=== PATIENT | female | born 1995 | race Caucasian/White ===

== ENCOUNTER 2017-09-05 10:53 | Emergency (ER) | payer MEDICAID ==
[2017-09-05 10:59] VITALS: RESP 16; O2SAT 97
--- NOTE | 2017-09-05 11:30 | EDPHY ---
H & P Stated Complaint: awakened today with dizzyness/increased with turning head/ nausea HPI/ROS: CHIEF COMPLAINT: Dizziness HISTORY OF PRESENT ILLNESS: The patient is a 22 y/o female arriving with her boyfriend complaining of dizziness with head movement upon waking this morning. She had a wave of nausea upon sitting up in bed, which continued with any movement of her eyes or body. Upon lying back down and closing her eyes she felt extremely dizzy, like the room was spinning. She gets similar symptoms frequently before bed, but they usually resolve quickly. She has some baseline left-sided neck pain and occasional back pain that she attributes to heavy lifting at work. This is sometimes associated with tingling in her arms or legs upon waking in the morning; she had the same arm paresthesias this morning that have since resolved and currently has mild neck pain that is the same as baseline. No headache, change in hearing, vision changes, speech difficulty, weakness, current numbness, fever. LMP was last week. No recent chiropractic adjustments or trauma. REVIEW OF SYSTEMS: A ten point review of systems was performed and is negative with the exception of the items mentioned in the HPI. Past medical history: Neck and back pain Family history: Noncontributory Social history: Employed at a [employer]. Boyfriend at bedside. 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 Lives in [place]. General Appearance: Alert. Vital signs reviewed. Blood pressure 128/87. Eyes: Pupils equal and round, no conjunctival injection, no discharge. Anicteric. No nystagmus. ENT, Mouth: Mucous membranes are moist, no oropharyngeal erythema or edema. TMs normal bilaterally. Neck: No lymphadenopathy, supple. No carotid bruit. Range of motion not tested. Respiratory: Lungs are clear to auscultation; no wheezes, rales, or rhonchi. Cardiovascular: Regular rate and rhythm; no murmur, rub, or gallop. Gastrointestinal: Abdomen is soft and nontender, no masses or organomegaly. Skin: Warm and dry, no rashes on exposed skin, normal color. Back: Nontender to palpation over the thoracolumbar spine. No CVAT. Extremities: No lower extremity edema, no calf tenderness or swelling. Neurological: Alert and oriented. Moving all four extremities easily and equally. Cranial nerves II through XII are examined and are intact (visual acuity not tested). Strength is 5 over 5 bilaterally with testing of all major motor groups. Sensation is intact to light touch over all 4 extremities. Deep tendon reflexes are 2+ in the biceps and knees bilaterally. [id number] is performed accurately. Psychiatric: Normal affect. - Personal History LMP (Females 10-55): 1-7 Days Ago Current Tetanus/Diphtheria Vaccine: Unsure - Medical/Surgical History Hx Asthma: No Hx Chronic Respiratory Disease: No Hx Diabetes: No Hx Cardiac Disease: No Hx Renal Disease: No Hx Cirrhosis: No Hx Alcoholism: No Hx HIV/AIDS: No Hx Splenectomy or Spleen Trauma: No Other PMH: denies - Social History Smoking Status: Never smoked Constitutional: Initial Vital Signs Temperature (C) 36.7 C 09/05/17 10:57 Heart Rate 86 09/05/17 10:57 Respiratory Rate 16 09/05/17 10:57 Blood Pressure 128/87 H 09/05/17 10:57 O2 Sat (%) 97 09/05/17 10:57 O2 Delivery Mode Room Air Allergies/Adverse Reactions: Sulfa (Sulfonamide Antibiotics) Allergy (Verified 09/05/17 10:56) Home Medications: Medication Instructions Recorded Meclizine HCl [Meclizine HCl 25 mg 25 mg PO TID PRN #10 tab 09/05/17 (RX,OTC)] Ondansetron Odt [Zofran Odt 4 mg 4 mg PO Q4 PRN #10 tab 09/05/17 (RX)] Sprintec 28 Day Tablet 09/05/17 Medical Decision Making ED Course/Re-evaluation: This is a normally 22 y/o female who presents with dizziness and nausea upon waking this morning. Her neuro exam is normal. Presentation consistent with vertigo, though also considered possibility of with her morning nausea. She declines an IV at this time. Plan for 4mg ODT Zofran and 25mg PO Meclizine, urine test. I do not suspect a central origin for her vertigo. 1337: Reevaluated patient. She is feeling almost completely improved after Meclizine and was able to stand and walk with minimal assistance without exacerbating symptoms. She feels ready to go home and will be discharged with scripts for Meclizine and Zofran with standard vertigo care and follow up instructions. Return precautions discussed. Differential Diagnosis: Vertigo including but not limited to peripheral causes such as benign positional vertigo, Meniere's disease, viral labyrinthitis and central causes such as CVA, and tumor. - Data Points Medications Given: Discontinued Medications Meclizine HCl (Meclizine Hcl) 25 mg PO EDNOW ONE Stop: 09/05/17 11:53 Last Admin: 09/05/17 11:55 Dose: 25 mg Ondansetron HCl (Zofran Odt) 4 mg PO EDNOW ONE Stop: 09/05/17 11:53 Last Admin: 09/05/17 11:55 Dose: 4 mg Departure - Departure Disposition: Home, Routine, Self-Care Clinical Impression: Vertigo Condition: Good Instructions: Meclizine (By mouth), Benign Paroxysmal Positional Vertigo (ED) Additional Instructions: 1. Take Meclizine as prescribed for vertigo symptoms. 2. Use Zofran as prescribed as needed for nausea. 3. Establish care with a local primary care provider. You've also been referred to Dr. Carrillo, ENT, for recurrent or persistent vertigo symptoms. 4. Return to the ED for severe headache, weakness, numbness, fever, vision changes, or other worsening of condition. Referrals: [facility],. [Clinic] - As per Instructions Margie Plata MD [Medical Doctor] - As per Instructions Prescriptions: Meclizine HCl [Meclizine HCl 25 mg (RX,OTC)] 25 mg PO TID PRN #10 tab PRN Reason: vertigo Ondansetron Odt [Zofran Odt 4 mg (RX)] 4 mg PO Q4 PRN #10 tab PRN Reason: nausea Report Scribed for: Krys Carrillo Report Scribed by: Madeleine Stanton Date of Report: 09/05/17 Time of Report: 11:38 Physician Review and Approval Statement: 09/05/17 11:30 Portions of this note were transcribed by the emergency medical service manager. I, Dr. Krys Carrillo, personally performed the history, physical exam, and medical decision- making; and confirmed the accuracy of the information in the transcribed note.
[2017-09-05] MEDS ORDERED: ONDANSETRON DISINTEGRATING 4 MG TAB PO ONE (11:52)
[2017-09-05] MEDS ORDERED: MECLIZINE HCL 25 MG TAB PO ONE (11:52)
[2017-09-05 14:12] VITALS: BP 124/67; PULSE 80; TEMP 98.2
== END 2017-09-05 14:12 | disposition home or self-care (01) ==
DX: R42 Dizziness and giddiness (principal)